=== PATIENT | female | born 1950 | race Caucasian/White ===

== ENCOUNTER → 2024-11-16 | Outpatient (CLI) | payer OTHER ==
[2024-11-17 12:32] LABS: Creatinine, Urine Random 57.3 mg/dL (27.00-270.00)
[2024-11-17 12:38] LABS: Microalb/Creat Ratio UR, Rand 68.761 mg/g (0.000-30.000); Microalbumin, Random Urine 39.4 mg/L (0.000-20.000)
== END | disposition home or self-care (01) ==
LOC: LAB 16:00 → LAB SHORT 16:00
PROVIDERS: Family Medicine
DX: E11.59 Type 2 diabetes mellitus with other circulatory complications (principal); E11.69 Type 2 diabetes mellitus with other specified complication
CPT/HCPCS: 82043; 82570

== ENCOUNTER → 2025-02-12 | Outpatient (CLI) | payer OTHER ==
[2025-02-12 18:23] LABS: Creatinine, Urine Random 31.7 mg/dL (27.00-270.00)
[2025-02-12 18:24] LABS: Microalb/Creat Ratio UR, Rand 41.01 mg/g (0.000-30.000)
== END ==
LOC: LAB SHORT 13:31 → LAB 13:31
PROVIDERS: Family Medicine
DX: E11.59 Type 2 diabetes mellitus with other circulatory complications (principal); E11.69 Type 2 diabetes mellitus with other specified complication
CPT/HCPCS: 82043; 82570